=== PATIENT | female | born 1985 | race Two or more races ===

== ENCOUNTER 2023-01-17 10:09 | Outpatient (CLI) | payer OTHER | END 2023-01-17 10:29 | disposition home or self-care (01) | LOC: PRENATAL 10:09 | PROVIDERS: ATTEND Obstetrics & Gynecology Maternal & Fetal Medicine | DX: O36.80X0 Pregnancy with inconclusive fetal viability, not applicable or unspecified (principal); Z36.9 Encounter for antenatal screening, unspecified; Z36.82 Encounter for antenatal screening for nuchal translucency; O09.529 Supervision of elderly multigravida, unspecified trimester; O99.891 Other specified diseases and conditions complicating pregnancy; Z3A.11 11 weeks gestation of pregnancy ==

== ENCOUNTER 2023-03-17 08:15 | Outpatient (CLI) | payer OTHER | END 2023-03-17 08:17 | disposition home or self-care (01) | LOC: PRENATAL 08:15 | PROVIDERS: ATTEND Obstetrics & Gynecology Maternal & Fetal Medicine | DX: O35.3XX0 Maternal care for (suspected) damage to fetus from viral disease in mother, not applicable or unspecified (principal); O09.529 Supervision of elderly multigravida, unspecified trimester; O99.891 Other specified diseases and conditions complicating pregnancy; O44.00 Complete placenta previa NOS or without hemorrhage, unspecified trimester; Z3A.19 19 weeks gestation of pregnancy ==

== ENCOUNTER → 2023-06-12 08:37 | Outpatient (CLI) | payer OTHER | END | disposition home or self-care (01) | LOC: PRENATAL 08:37 | PROVIDERS: ATTEND Obstetrics & Gynecology Maternal & Fetal Medicine | DX: O26.849 Uterine size-date discrepancy, unspecified trimester (principal); O36.8199 Decreased fetal movements, unspecified trimester, other fetus; O09.529 Supervision of elderly multigravida, unspecified trimester; O99.891 Other specified diseases and conditions complicating pregnancy; Z3A.32 32 weeks gestation of pregnancy ==